=== PATIENT | male | born 1940 | race Caucasian/White ===

== ENCOUNTER 2023-06-02 21:38 | Observation (INO) ==
[2023-06-02] MEDS ORDERED: 0.9 % SODIUM CHLORIDE 500 ML IV ONE (21:55)
[2023-06-02 22:08] LABS: POC Calcium, Ionized 1.04 (1.16-1.32); POC Creatinine 0.4 (0.6-1.2); POC Potassium 4.1 (3.3-5.1)
[2023-06-02 23:16] LABS: Basophils # (Auto) 0.03 K/mcL (0.00-0.30); Basophils % (Auto) 0.5 % (0.0-2.0); Eosinophils # (Auto) 0.03 K/mcL (0.00-0.70); Eosinophils % (Auto) 0.5 % (0.0-7.0); Hematocrit 40.9 % (40.1-51.0); Hemoglobin 13.7 g/dL (13.7-17.5); Lymphocytes # (Auto) 0.96 K/mcL (1.50-4.80); Lymphocytes % (Auto) 16.6 % (15.5-49.0); Mean Cell Volume 95.6 fL (80.0-100.0); Mean Corpuscular HGB Conc 33.5 g/dL (31.0-36.0); Mean Platelet Volume 13.9 fL (8.8-12.5); Monocytes # (Auto) 1.23 K/mcL (0.10-0.90); Monocytes % (Auto) 21.3 % (1.0-12.0); Neutrophils % (Auto) 60.8 % (38.0-78.0); Platelet Count 99 K/mcL (140-440); RBC 4.28 M/mcL (4.63-6.08); Red Cell Distribution Width 14.1 % (11.5-14.5); WBC 5.8 K/mcL (4.5-11.0)
[2023-06-03] MEDS ORDERED: REMDESIVIR 200 MG in 0.9 % SODIUM CHLORIDE 250 ML IV ONE (00:36)
[2023-06-03] MEDS ORDERED: ONDANSETRON 4 MG/2 ML VIAL IV PRN (02:47)
[2023-06-03] MEDS ORDERED: 0.9 % SODIUM CHLORIDE 1,000 ML IV SCH (02:47)
[2023-06-03] MEDS ORDERED: ALBUTEROL SULFATE 2.5 MG/3 ML NEBULIZER NEB PRN (02:47)
[2023-06-03] MEDS ORDERED: ACETAMINOPHEN 325 MG TABLET PO PRN (02:47)
[2023-06-03 04:50] LABS: Estimated Average Glucose(eAG) 134 mg/dL; Hemoglobin A1C 6.3 % Hgb (4.0-6.0)
[2023-06-03 04:51] LABS: ALT/SGPT 14 U/L (<40); AST/SGOT 32 U/L (<40); Albumin 3.6 gm/dL (3.2-5.2); Albumin/Globulin Ratio 1.2 (1.0-2.3); Alkaline Phosphatase 87 U/L (39-117); Bilirubin,Direct 0.3 mg/dL (<0.3); Bilirubin,Total 0.9 mg/dL (0.1-1.0); Blood Urea Nitrogen 14 mg/dL (8-23); Calcium 8.2 mg/dL (8.6-10.4); Carbon Dioxide 21 mmol/L (22-30); Chloride 102 mmol/L (96-108); Glomerular Filtration Rate 61; Glucose 110 mg/dL (70-105); Lactate Dehydrogenase 236 U/L (135-225); Phosphorous 3.3 mg/dL (2.5-4.5); Triglycerides 64 mg/dL (<150); Uric Acid 5.7 mg/dL (2.5-8.0)
[2023-06-03] MEDS: 0.9 % SODIUM CHLORIDE 10 ML SYRINGE IV SCH ×4 (05:18→20:32)
[2023-06-03] MEDS ORDERED: DEXTROSE 50% 50 ML VIAL IV PRN (07:06)
[2023-06-03] MEDS ORDERED: DEXTROSE 31 GM ORAL.SUSP PO PRN (07:06)
[2023-06-03] MEDS: LOSARTAN 50 MG TABLET PO SCH (08:33)
[2023-06-03] MEDS: CETIRIZINE 10 MG TABLET PO SCH (08:33)
[2023-06-03] MEDS: APIXABAN 5 MG TABLET PO SCH ×2 (08:33→20:31)
[2023-06-03] MEDS: DOCUSATE SODIUM 100 MG CAPSULE PO SCH ×2 (08:33→20:31)
[2023-06-03] MEDS: OMEPRAZOLE 20 MG CAPSULE PO SCH (08:33)
[2023-06-03] MEDS: ALLOPURINOL 100 MG TABLET PO SCH (08:33)
[2023-06-03] MEDS: INSULIN LISPRO 1 UNIT/0.01 ML UNIT SQ SCH ×4 (08:41→20:54)
[2023-06-03] MEDS ORDERED: NIRMATRELVIR/RITONAVIR 1 EACH BOX PO SCH (09:00)
[2023-06-03] MEDS ORDERED: amLODIPine 5 MG TABLET PO ONE (16:34)
[2023-06-03] MEDS: REMDESIVIR 100 MG in 0.9 % SODIUM CHLORIDE 250 ML IV SCH (17:37)
[2023-06-03] MEDS: SIMVASTATIN 20 MG TABLET PO SCH (20:31)
[2023-06-03] MEDS: SENNOSIDES 1 TABLET PO SCH (20:31)
[2023-06-04 07:11] LABS: Basophils # (Auto) 0.04 K/mcL (0.00-0.30); Basophils % (Auto) 0.8 % (0.0-2.0); Eosinophils # (Auto) 0.07 K/mcL (0.00-0.70); Eosinophils % (Auto) 1.4 % (0.0-7.0); Hematocrit 45.4 % (40.1-51.0); Hemoglobin 14.8 g/dL (13.7-17.5); Lymphocytes # (Auto) 1.68 K/mcL (1.50-4.80); Lymphocytes % (Auto) 32.7 % (15.5-49.0); Mean Cell Volume 98.1 fL (80.0-100.0); Mean Corpuscular HGB Conc 32.6 g/dL (31.0-36.0); Mean Platelet Volume 12.9 fL (8.8-12.5); Monocytes # (Auto) 1.13 K/mcL (0.10-0.90); Neutrophils % (Auto) 42.7 % (38.0-78.0); Platelet Count 104 K/mcL (140-440); RBC 4.63 M/mcL (4.63-6.08); Red Cell Distribution Width 14.3 % (11.5-14.5); WBC 5.1 K/mcL (4.5-11.0)
[2023-06-04] MEDS: OMEPRAZOLE 20 MG CAPSULE PO SCH (07:28)
[2023-06-04] MEDS: 0.9 % SODIUM CHLORIDE 10 ML SYRINGE IV SCH ×3 (07:29→21:21)
[2023-06-04] MEDS: INSULIN LISPRO 1 UNIT/0.01 ML UNIT SQ SCH ×4 (07:30→21:20)
[2023-06-04 07:37] LABS: ALT/SGPT 16 U/L (<40); AST/SGOT 43 U/L (<40); Albumin 3.7 gm/dL (3.2-5.2); Albumin/Globulin Ratio 1.2 (1.0-2.3); Alkaline Phosphatase 88 U/L (39-117); Bilirubin,Direct 0.2 mg/dL (<0.3); Bilirubin,Total 0.7 mg/dL (0.1-1.0); Blood Urea Nitrogen 16 mg/dL (8-23); Calcium 8.4 mg/dL (8.6-10.4); Carbon Dioxide 20 mmol/L (22-30); Chloride 102 mmol/L (96-108); Globulin 3.1 gm/dL (2.2-3.7); Glomerular Filtration Rate 61; Glucose 106 mg/dL (70-105); Lactate Dehydrogenase 239 U/L (135-225); Phosphorous 3.7 mg/dL (2.5-4.5); Triglycerides 50 mg/dL (<150); Uric Acid 5.5 mg/dL (2.5-8.0)
[2023-06-04] MEDS: DOCUSATE SODIUM 100 MG CAPSULE PO SCH ×2 (08:44→21:21)
[2023-06-04] MEDS: amLODIPine 5 MG TABLET PO SCH (08:58)
[2023-06-04] MEDS: ALLOPURINOL 100 MG TABLET PO SCH (08:58)
[2023-06-04] MEDS: LOSARTAN 50 MG TABLET PO SCH (08:58)
[2023-06-04] MEDS: APIXABAN 5 MG TABLET PO SCH ×2 (08:58→21:21)
[2023-06-04] MEDS: CETIRIZINE 10 MG TABLET PO SCH (08:59)
[2023-06-04] MEDS: REMDESIVIR 100 MG in 0.9 % SODIUM CHLORIDE 250 ML IV SCH (10:21)
[2023-06-04] MEDS: SENNOSIDES 1 TABLET PO SCH (21:21)
[2023-06-04] MEDS: SIMVASTATIN 20 MG TABLET PO SCH (21:21)
[2023-06-05] MEDS: 0.9 % SODIUM CHLORIDE 10 ML SYRINGE IV SCH (05:40)
[2023-06-05] MEDS: OMEPRAZOLE 20 MG CAPSULE PO SCH (07:32)
[2023-06-05] MEDS: INSULIN LISPRO 1 UNIT/0.01 ML UNIT SQ SCH ×2 (08:31→12:35)
[2023-06-05] MEDS: DOCUSATE SODIUM 100 MG CAPSULE PO SCH (08:31)
[2023-06-05] MEDS: LOSARTAN 50 MG TABLET PO SCH (09:47)
[2023-06-05] MEDS: amLODIPine 5 MG TABLET PO SCH (09:47)
[2023-06-05] MEDS: APIXABAN 5 MG TABLET PO SCH (09:47)
[2023-06-05] MEDS: ALLOPURINOL 100 MG TABLET PO SCH (09:47)
[2023-06-05] MEDS: CETIRIZINE 10 MG TABLET PO SCH (09:48)
== END 2023-06-05 14:27 | disposition home or self-care (01) ==
LOC: MEDSUR 21:38 → ED 21:38 → MEDSUR 06-03 02:47
PROVIDERS: ADMIT Internal Medicine; ATTEND Internal Medicine